=== PATIENT | male | born 1980 | race Caucasian/White ===

== ENCOUNTER 2023-01-24 14:58 | Emergency (ER) | payer OTHER ==
[~2023-01-24] VITALS: Ht 176.5 cm; Wt 65.9 kg
[2023-01-24 15:15] VITALS: BP 121/74; PULSE 70; RESP 18; TEMP 98.9; O2SAT 100
[2023-01-24] MEDS ORDERED: LORazepam 1 MG tablet PO ONE (17:00)
[2023-01-24] MEDS ORDERED: LORA-269 PO (17:22)
== END 2023-01-24 17:30 | disposition home or self-care (01) ==
LOC: ER 14:59
DX: F41.9 Anxiety disorder, unspecified (principal); F17.200 Nicotine dependence, unspecified, uncomplicated
CPT/HCPCS: 93005; 99283